=== PATIENT | male | born 1965 | race Hispanic/Latino ===

== ENCOUNTER 2017-12-17 22:04 | Emergency (ER) | payer OTHER ==
[2017-12-17 22:30] VITALS: BP 147/99
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
[2017-12-18] MEDS ORDERED: BACTRIM DS ONE (01:41)
[2017-12-18] MEDS ORDERED: MOTRIN PO ONE ×2 (01:41→01:42)
[2017-12-18] MEDS ORDERED: BACTRIM DS PO ONE (01:42)
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
[2017-12-18] MEDS ORDERED: BOOSTRIX IM ONE ×2 (01:52→01:56)
== END 2017-12-18 02:16 ==
LOC: ED 22:04
DX: S01.111A Laceration without foreign body of right eyelid and periocular area, initial encounter (principal); F17.200 Nicotine dependence, unspecified, uncomplicated; Z88.5 Allergy status to narcotic agent; Z88.0 Allergy status to penicillin; W19.XXXA Unspecified fall, initial encounter; Y93.89 Activity, other specified; Y92.149 Unspecified place in prison as the place of occurrence of the external cause; Y99.8 Other external cause status
CPT/HCPCS: 70450; 70486; 72125; 90471; 90715; 99284